=== PATIENT | female | born 1960 | race African-American/Black ===

== ENCOUNTER → 2017-05-13 | Outpatient (CLI) | payer MEDICARE, MEDICAID ==
--- NOTE | 2017-05-13 16:59 | WOMENS IMAGING REPORT ---
EXAM DESCRIPTION: 3D SCREENING MAMMO BILAT COMPLETED DATE/TIME: 05/13/2017 10:17 am REASON FOR STUDY: SCREENING MAMMO Z12.31 ENCNTR SCREEN MAMMOGRAM FOR MALIGNANT NEOPLASM OF RENU COMPARISON: Multiple since 2008 TECHNIQUE: Standard craniocaudal and mediolateral oblique views of each breast recorded using digita l acquisition and breast tomosynthesis. LIMITATIONS: None. FINDINGS: Findings present which are benign by mammographic criteria. No suspicious masses, calcifi cations or architectural distortion. Pertinent benign findings: Benign calcifications bilaterally. Bilateral breast masses, stable. Read with the assistance of CAD. .[facility] - R2 Cenova Version 1.3 .[facility] - R2 Cenova Version 1.3 .[facility] - R2 Cenova Version 2.4 .[facility] - R2 Cenova Version 2.4 .[facility] - R2 Media Assistant Version 9.2 Benign mammographic findings may include one or more of the following: Smooth masses, popcorn/rim/co arse calcifications, asymmetries, post-procedure changes, and lesions with long-standing stability. IMPRESSION: BENIGN MAMMOGRAPHIC FINDINGS. BIRADS 2 BREAST DENSITY: d. The breasts are extremely dense, which lowers the sensitivity of mammography. BIRAD: 2 BENIGN FINDING(S) RECOMMENDATION: RECOMMENDATION: ROUTINE SCREENING Please continue yearly bilateral screening tomosynthesis in April 2018 COMMENT: The patient has been notified of the results by letter per SA requirements. Additional no tification policies are in place for contacting patient with suspicious or incomplete findings. Quality ID #[id number]: The [employer] recommends an annual screening mammogram for women aged 40 years or over. This facility utilizes a reminder system to ensure that all patients receive reminder letters, and/or direct phone calls for appointments. This includes reminders for routine scr eening mammograms, diagnostic mammograms, or other Breast Imaging Interventions when appropriate. Th is patient will be placed in the appropriate reminder system. The [employer] [place] [employer] (ACR) has developed recommendations for screening MRI of the breast s in certain patient populations, to be used in conjunction with mammography. Breast MRI surveillanc e may be appropriate for women with more than 20% lifetime risk of developing breast cancer as deter mined by genetic testing, significant family history of the disease, or history of mantle radiation f or Hodgkins Disease. ACR Practice Guidelines 2008. DBT Technology DBT is a type of tomographic mammography. With conventional mammography, overlapping breast tissue ma y make lesions difficult to detect, even with good compression. DBT uses an x-ray tube that rotates a round the breast, taking images at different angles. These images are then combined to create thin sl ices of the breast that the radiologist can view as a 3D reconstruction. The Coll[employer] unit can perform full-field digital mammograms (2D imaging); or DBT (3D imaging); or both, in a combination mode that quickly performs both the mammogram and the tomosynthesis scan while the breast is still compressed. PQRS 6045F: Fluoroscopic imaging is not utilized for breast tomosynthesis. TECHNICAL DOCUMENTATION: FINDING NUMBER: (1) ASSESSMENT: (1) JOB ID: [id number] [employer]- All Rights Reserved
== END ==
LOC: WI 09:55
PROVIDERS: ATTEND Advanced Practice Midwife
DX: Z12.31 Encounter for screening mammogram for malignant neoplasm of breast (principal)
CPT/HCPCS: 77063; G0202; 77067

== ENCOUNTER → 2017-07-26 | Outpatient (CLI) | payer MEDICARE, MEDICAID ==
--- NOTE | 2017-07-26 15:23 | WOMENS IMAGING REPORT ---
EXAM DESCRIPTION: 3D SCREENING MAMMO BILAT COMPLETED DATE/TIME: 07/26/2017 9:33 am REASON FOR STUDY: ROUTINE SCREENING; Z12.31 Z12.31 ENCNTR SCREEN MAMMOGRAM FOR MALIGNANT NEOPLASM O F RENU COMPARISON: 05/13/2017 and 05/11/2016. TECHNIQUE: Standard craniocaudal and mediolateral oblique views of each breast recorded using digita l acquisition and breast tomosynthesis. LIMITATIONS: None. FINDINGS: Findings present which are benign by mammographic criteria. No suspicious masses, calcifi cations or architectural distortion. Pertinent benign findings: Stable calcifications. Read with the assistance of CAD. .[facility] - R2 Cenova Version 1.3 .[facility] Imaging - R2 Cenova Version 1.3 .[facility] - R2 Cenova Version 2.4 .[facility] [place] R2 Cenova Version 2.4 .[facility] - R2 Diesel Engine I Pipe Fitter Version 9.2 Benign mammographic findings may include one or more of the following: Smooth masses, popcorn/rim/co arse calcifications, asymmetries, post-procedure changes, and lesions with long-standing stability. IMPRESSION: BENIGN MAMMOGRAPHIC FINDINGS. BIRADS 2 BREAST DENSITY: d. The breasts are extremely dense, which lowers the sensitivity of mammography. BIRAD: 2 BENIGN FINDING(S) RECOMMENDATION: RECOMMENDATION: ROUTINE SCREENING COMMENT: The patient has been notified of the results by letter per SA requirements. Additional no tification policies are in place for contacting patient with suspicious or incomplete findings. Quality ID #[id number]: The [employer] recommends an annual screening mammogram for women aged 40 years or over. This facility utilizes a reminder system to ensure that all patients receive reminder letters, and/or direct phone calls for appointments. This includes reminders for routine scr eening mammograms, diagnostic mammograms, or other Breast Imaging Interventions when appropriate. Th is patient will be placed in the appropriate reminder system. The [employer] (ACR) has developed recommendations for screening MRI of the breast s in certain patient populations, to be used in conjunction with mammography. Breast MRI surveillanc e may be appropriate for women with more than 20% lifetime risk of developing breast cancer as deter mined by genetic testing, significant family history of the disease, or history of mantle radiation f or Hodgkins Disease. ACR Practice Guidelines 2008. DBT Technology DBT is a type of tomographic mammography. With conventional mammography, overlapping breast tissue ma y make lesions difficult to detect, even with good compression. DBT uses an x-ray tube that rotates a round the breast, taking images at different angles. These images are then combined to create thin sl ices of the breast that the radiologist can view as a 3D reconstruction. The [employer] unit can perform full-field digital mammograms (2D imaging); or DBT (3D imaging); or both, in a combination mode that quickly performs both the mammogram and the tomosynthesis scan while the breast is still compressed. PQRS 6045F: Fluoroscopic imaging is not utilized for breast tomosynthesis. TECHNICAL DOCUMENTATION: FINDING NUMBER: (1) ASSESSMENT: (1) JOB ID: [id number] [employer]- All Rights Reserved
== END ==
LOC: WI 09:14
PROVIDERS: ATTEND Internal Medicine Geriatric Medicine
DX: Z12.31 Encounter for screening mammogram for malignant neoplasm of breast (principal)
CPT/HCPCS: 77063; G0202; 77067

== ENCOUNTER → 2018-02-27 | Emergency (ER) | payer MEDICARE, MEDICAID ==
[~2018-02-27] MED LIST: ETOMIDATE INJ/PF 20 MG/10 ML SDV IV ONE; FENTANYL CITRATE INJ/PF 100 MCG/2 ML AMPUL IV PRN; NALOXONE HCL INJ/PF 0.4 MG/1 ML SDV IV ONE; NALOXONE HCL INJ/PF 0.4 MG/1 ML SDV ONE; NORMAL SALINE 1000 ML 1,000 ML IV ONE; PIPERACILLIN/TAZOBACTAM 3.375 GM VIAL IV ONE; PROPOFOL 1,000 MG/100 ML INFUS..BTL IV ONE; PROPOFOL 1,000 MG/100 ML INFUS..BTL IV PRN; SUCCINYLCHOLINE CHLORIDE INJ 200 MG/10 ML VIAL IV ONE; SUCCINYLCHOLINE CHLORIDE INJ 200 MG/10 ML VIAL ONE
--- NOTE | 2018-02-27 20:08 | ER Document Report ---
ED General - General Stated Complaint: UNRESPONSIVENESS Time Seen by Provider: 02/27/18 20:02 Cannot obtain history due to: Altered mental status Notes: Patient is a 57 year old female who has a known history of a brain malignancy who presents lethargic. EMS reports that the patient has been like this all day apparently and when she was feeling to improve they contacted EMS. The patient is normally up, walking around and interactive. She is not currently take any medications. No additional history can be obtained due to the patient' s mental status at time of arrival. TRAVEL OUTSIDE OF THE [place] IN LAST 30 DAYS: No - Related Data Allergies/Adverse Reactions: No Known Allergies Allergy (Unverified 03/24/16 12:01) Past Medical History - General Information source: Emergency Med Personnel Cannot obtain history due to: Altered mental status - Social History Smoking Status: Unknown if Ever Smoked Lives with: Family Family History: Reviewed & Not Pertinent Past Surgical History: Reports: Hx Neurologic Surgery - dr. abi singh. shunts - Immunizations Hx Diphtheria, Pertussis, Tetanus Vaccination: Yes Review of Systems - Review of Systems -: Yes ROS unobtainable due to patient's medical condition Physical Exam - Vital signs Vitals: Resp BP Pulse Ox 11 L 122/85 95 02/27/18 20:42 02/27/18 20:42 02/27/18 20:42 Notes: PHYSICAL EXAMINATION: GENERAL: Lethargic, responds only to noxious stimuli HEAD: Atraumatic, normocephalic. EYES: Pupils equal round and reactive to light, sclera anicteric, conjunctiva are normal. ENT: nares patent, oropharynx clear without exudates. Dry mucous membranes. NECK: supple without lymphadenopathy LUNGS: Breath sounds clear to auscultation bilaterally and equal. No wheezes rales or rhonchi. HEART: Regular rate and rhythm without murmurs ABDOMEN: Soft, normoactive bowel sounds. No guarding, no rebound. No masses appreciated. EXTREMITIES: no pitting or edema. No cyanosis. NEUROLOGICAL: GCS 7. No spontaneous eye opening. Does not open eyes to noxious stimuli, withdraws purposefully on the left and crosses midline from left to right with noxious stimuli applied to the left upper extremity. Withdraws to pain in the left lower extremity. Slight withdrawal to pain in the right lower extremity to noxious stimuli PSYCH: Lethargic, does not speak SKIN: Warm, Dry, normal turgor, no rashes or lesions noted. Course - Re-evaluation Re-evalutation: 02/27/18 20:03 Patient presents lethargic, GCS 7 at time of presentation. Patient purposely moves her left upper extremity to pain as well as her left lower extremity pain but does not move her right upper extremity to noxious stimuli. She does purposefully cross midline in try to move my hand using her left hand. She does not have spontaneous eye opening. Pupils are 2 mm, equally reactive. She is currently protecting her airway. She has a history of a brain tumor but no additional history is provided and patient is unable to provide any additional history. Patient is in critical condition and will require frequent reassessments. Concern for possible hemorrhagic conversion of her brain tumor versus associated vasogenic edema. Stat CT the head has been ordered. 02/27/18 20:20 CT the head shows shunt in place, no obvious intracranial bleed. Awaiting formal radiology read. EKG unremarkable. Patient continues to be quite lethargic. She does continue to protect her airway at this point and I will withhold intubation at this time. Will provide an empiric dose of 0.4 mg of naloxone and see if there is any response. 02/27/18 20:34 Radiology has formally read the CT and does not note any evidence of acute intracranial bleed. Accu-Chek shows BGL within normal limits. Labs pending. Patient continues to purposely move her left upper and left lower extremities. She is sleeping soundly but does not appear to be having an acute airway compromise. Will continue to monitor for need for airway intervention. 02/27/18 21:34 Chest x-ray shows a possible left lower lobe pneumonia. Labs otherwise completely unremarkable. Will contact [facility] for consideration of transfer. The patient continues to protect her airway, no gurgling, swallowing oral secretions without any difficulty. The patient was completely covered in stool , took approximately 20 minutes for 2 staff members to clean her and place a Fall catheter. An Adult Protective Services report has been made. 02/27/18 21:46 I have contacted [facility] and awaiting a call back. Shunt series is pending. 02/27/18 22:31 Patient has been accepted by Dr. Duran at [facility] to the emergency department. The patient apparently per the nurse had a brief period of lucidity where she responded to several questions but is no longer doing so. She continues to protect her airway. Awaiting transfer. 02/28/18 00:21 Patient has been intubated for airway protection as she will be going by a flight transfer and do has requested airway protection prior to transfer. This was completed without any difficulty. Fentanyl boluses as needed 02/28/18 01:03 Transport has arrived for patient transfer. She is appropriate and stable for transport. Propofol infusion has been started as patient was biting the ET tube despite fentanyl sedation. 02/28/18 01:28 Chest x-ray does show that the tube is in the right mainstem which is surprising given that it is still 22 cm at the lip. Will pull the tube back to 20 cm at the lip. - Vital Signs Vital signs: Temp Pulse Resp BP Pulse Ox 16 145/89 H 96 02/28/18 01:11 02/28/18 01:11 02/28/18 01:11 - Laboratory Result Diagrams: 02/27/18 20:25 02/27/18 20:25 Laboratory results interpreted by me: 02/27/18 02/27/18 02/27/18 20:25 20:25 21:31 WBC 11.5 H Hgb 16.6 H Hct 49.1 H RDW 15.3 H Seg Neutrophils % 88.6 H Lymphocytes % 5.2 L Absolute Neutrophils 10.2 H Potassium 3.5 L Glucose 112 H Direct Bilirubin 0.6 H Total Protein 9.1 H Urine Protein 30 H Urine Ketones 80 H Urine Blood LARGE H Urine Nitrite POSITIVE H Urine Urobilinogen 4.0 H - Diagnostic Test Radiology reviewed: Image reviewed, Reports reviewed Radiology results interpreted by me: 02/27/18 21:37 CT head: No acute intercranial bleed Chest x-ray: Small left lower lobe infiltrate Procedures - Intubation Orotracheal Airway evaluation: Normal anatomy, Loose teeth Mallampati Classification: Class 2 Medications: Etomidate, Succinylcholine Intubation method: Orotracheal Blade type: Katrin Blade size: 4 Equipment used: Glidescope ETT size: 7.5 ETT secured at: Lips ETT secured at (cm): 22 Breath Sounds after Intubation: Equal End tidal CO2 confirmed: Yes Ventilator settings: SIMV Tidal volume: 360 FiO2: 50 Respirations: 16 PEEP: 5 Post Intubation Xray: Yes - Initial x-ray showed right mainstem intubation Intubation Complications: No complications Critical Care Note - Critical Care Note Total time excluding time spent on procedures (mins): 56 Comments: Critical care time spent obtaining history from patient or surrogate, discussions with consultants, development of treatment plan with patient or surrogate, evaluation of patient's response to treatment, examination of patient , ordering and performing treatments and interventions, ordering and review of laboratory studies, re-evaluation of patient's condition, ordering and review of radiographic studies and review of old charts Discharge - Discharge Clinical Impression: S/P MACHINE TRIMMER shunt Altered mental status Qualifiers: Altered mental status type: coma Coma depth: Dhiraj coma 3-8 Coma timing: in the field (EMT or ambulance) Qualified Code(s): R40.2431 - Addison coma scale score 3-8, in the field [EMT or ambulance] Left lower lobe pneumonia Qualifiers: Pneumonia type: due to unspecified organism Qualified Code(s): J18.1 - Lobar pneumonia, unspecified organism Condition: Critical Disposition: [facility] Referrals: SMITHA MICHELLE MD [Primary Care Provider] - Follow up as needed
--- NOTE | 2018-02-27 20:28 | RADIOLOGY REPORT (SQ) ---
EXAM DESCRIPTION: CT HEAD WITHOUT COMPLETED DATE/TIME: 02/27/2018 8:14 pm REASON FOR STUDY: ams, hx brain tumor COMPARISON: None. TECHNIQUE: Axial images acquired through the brain without intravenous contrast. Images reviewed wi th bone, brain and subdural windows. Images stored on PACS. All CT scanners at this facility use dose modulation, iterative reconstruction, and/or weight based d osing when appropriate to reduce radiation dose to as low as reasonably achievable (ALARA). [facility]: Dose Right [facility]: CareDose [facility]: Dose Right [facility]: Teradose 4D [facility]: Smart HEXIO RADIATION DOSE: CT Rad equipment meets quality standard of care and radiation dose reduction techniq ues were employed. CTDIvol: 53.2 mGy. DLP: 991 mGy-cm. mGy. LIMITATIONS: None. FINDINGS: VENTRICLES: Prominent. CEREBRUM: No masses. No hemorrhage. No midline shift. Areas of low density in the white matter mos t likely due to chronic micro-vascular ischemic and procedural change. No evidence for acute infarct ion. CEREBELLUM: 2.2 cm calcified lesion in the tectal -4th ventricular region. No hemorrhage. No evide nce for acute infarction. EXTRAAXIAL SPACES: Mild age-related involutional change. No fluid collections. No masses. ORBITS AND GLOBE: No intra- or extraconal masses. Normal contour of globe without masses. CALVARIUM: Procedural changes in the right occipital bone. PARANASAL SINUSES: No fluid or mucosal thickening. SOFT TISSUES: No mass or hematoma. OTHER: Ventriculostomy catheter enters in the right frontal position with tip overlying the 3rd ventr icle. IMPRESSION: 2.2 cm calcified lesion in the tectal -4th ventricular region. No hemorrhage. Ventriculostomy catheter enters in the right frontal position with tip overlying the 3rd ventricle. EVIDENCE OF ACUTE STROKE: NO. TECHNICAL DOCUMENTATION: JOB ID: [id number] Quality ID # [id number]: Final reports with documentation of one or more dose reduction techniques (e.g., Au tomated exposure control, adjustment of the mA and/or kV according to patient size, use of iterative reconstruction technique) 2010 [employer]- All Rights Reserved Reading location - IP/workstation name: [email or web address]
[2018-02-27 20:47] LABS: VENOUS BLOOD HCO3 26.8 mmol/L (20-32); VENOUS BLOOD PCO2 42.4 mmHg (35-63); VENOUS BLOOD PH 7.42 (7.30-7.42)
[2018-02-27 20:50] LABS: ABSOLUTE BASOPHILS # (AUTO) 0.1 10^3/uL (0.0-0.2); ABSOLUTE LYMPHOCYTES (AUTO) 0.6 10^3/uL (0.5-4.7); ABSOLUTE MONOCYTES (AUTO) 0.6 10^3/uL (0.1-1.4); ABSOLUTE NEUT (AUTO) 10.2 10^3/uL (1.7-8.2); BASOPHILS % (AUTO) 0.5 % (0-2); EOSINOPHILS % (AUTO) 0.3 % (0-6); HEMATOCRIT 49.1 % (36.0-47.0); HEMOGLOBIN 16.6 g/dL (12.0-15.5); LYMPHOCYTES % (AUTO) 5.2 % (13-45); MEAN CORPUSCULAR HEMOGLOBIN 31.5 pg (27.0-33.4); MEAN CORPUSCULAR HGB CONC 33.7 g/dL (32.0-36.0); MEAN CORPUSCULAR VOLUME 93 fl (80-97); MONOCYTES % (AUTO) 5.4 % (3-13); PLATELET COUNT 256 10^3/uL (150-450); RED BLOOD COUNT 5.27 10^6/uL (3.72-5.28); RED CELL DISTRIBUTION WIDTH 15.3 % (11.5-14.0); SEGMENTED NEUTROPHILS % (AUTO) 88.6 % (42-78); TOTAL CELLS COUNTED % (AUTO) 100 %; WHITE BLOOD COUNT 11.5 10^3/uL (4.0-10.5)
--- NOTE | 2018-02-27 21:09 | RADIOLOGY REPORT (SQ) ---
EXAM DESCRIPTION: CHEST SINGLE VIEW COMPLETED DATE/TIME: 02/27/2018 8:55 pm REASON FOR STUDY: ams COMPARISON: None. EXAM PARAMETERS: NUMBER OF VIEWS: One view. TECHNIQUE: Single frontal radiographic view of the chest acquired. RADIATION DOSE: NA LIMITATIONS: None. FINDINGS: LUNGS AND PLEURA: Ill-defined opacification in the left lower lung. MEDIASTINUM AND HILAR STRUCTURES: No masses. Contour normal. HEART AND VASCULAR STRUCTURES: Heart normal in size. Normal vasculature. BONES: No acute findings. HARDWARE: Ventriculoperitoneal shunt. OTHER: No other significant finding. IMPRESSION: Cannot exclude a limited left lower lobe pneumonia. TECHNICAL DOCUMENTATION: JOB ID: [id number] [employer]- All Rights Reserved Reading location - IP/workstation name: [email or web address]
[2018-02-27 21:28] LABS: ALANINE AMINOTRANSFERASE 9 U/L (9-52); ALBUMIN 4.4 g/dL (3.5-5.0); ALKALINE PHOSPHATASE 72 U/L (38-126); ANION GAP 15 (5-19); ASPARTATE AMINO TRANSFERASE 28 U/L (14-36); BILIRUBIN,DIRECT 0.6 mg/dL (0.0-0.4); BILIRUBIN,TOTAL 1.1 mg/dL (0.2-1.3); BLOOD UREA NITROGEN 10 mg/dL (7-20); CALCIUM 9.7 mg/dL (8.4-10.2); CARBON DIOXIDE 26 mmol/L (22-30); CHLORIDE 103 mmol/L (98-107); GLUCOSE 112 mg/dL (75-110); POTASSIUM 3.5 mmol/L (3.6-5.0); SODIUM 144.3 mmol/L (137-145); TOTAL PROTEIN 9.1 g/dL (6.3-8.2)
--- NOTE | 2018-02-27 22:42 | EKG REPORT ---
SEVERITY:- ABNORMAL ECG - SINUS TACHYCARDIA RIGHT ATRIAL ABNORMALITY LEFT ANTERIOR FASCICULAR BLOCK : Confirmed by: Bethany Burns MD 27-Feb-2018 22:42:09
[2018-02-27 23:07] LABS: APPEARANCE,URINE TURBID; BILIRUBIN,URINE NEGATIVE (NEGATIVE); GLUCOSE, URINE NEGATIVE (NEGATIVE); KETONES,URINE 80 mg/dL (NEGATIVE); LEUKOCYTE ESTERASE,URINE NEGATIVE (NEGATIVE); NITRITE,URINE POSITIVE (NEGATIVE); PROTEIN,URINE 30 mg/dL (NEGATIVE)
--- NOTE | 2018-02-27 23:13 | RADIOLOGY REPORT (SQ) ---
EXAM DESCRIPTION: Shuntogram, three views February 27, 2018 at 10:34 PM CLINICAL HISTORY: eval shunt failure COMPARISON: None. FINDINGS: Frontal views of the skull, chest and abdomen were submitted. No discrete gap is noted within the catheter. The catheter ends at the level of the right lower quadrant. Lucency between the intracranial catheter and extracranial catheter compatible with the valve location. EKG leads project over the chest. Recommend further imaging as indicated. IMPRESSION: Frontal views of the skull, chest and abdomen were submitted. No discrete gap is noted within the catheter. The catheter ends at the level of the right lower quadrant. Lucency between the intracranial catheter and extracranial catheter compatible with the valve location. EKG leads project over the chest. Recommend further imaging as indicated.
[2018-02-27 23:16] LABS: COLOR,URINE DARK YELLOW
--- NOTE | 2018-02-28 00:54 | RADIOLOGY REPORT (SQ) ---
EXAM DESCRIPTION: XR CHEST 1 VIEW COMPLETED DATE/TME: 02/28/2018 00:00 CLINICAL HISTORY: 57 years, Female, TUBE PLACEMENT COMPARISON: None. FINDINGS: Single view of the chest. Endotracheal tube with tip in the right mainstem bronchus. NG tube with tip and side-port in the stomach. Leads overlie the chest. Interval development of opacification of the left lung which is likely due to collapse secondary to right mainstem bronchus intubation. No pneumothorax. Visualization of right ventriculoperitoneal shunt. IMPRESSION: 1. Endotracheal tube with tip in the proximal right mainstem bronchus. Repositioning recommended by retracting 4-5 cm. 2. Opacification and volume loss in the left lung likely related to right mainstem bronchial intubation. 2011 [employer]- All Rights Reserved
--- NOTE | 2018-02-28 01:46 | RADIOLOGY REPORT (SQ) ---
EXAM DESCRIPTION: XR CHEST 1 VIEW COMPLETED DATE/TME: 02/28/2018 00:00 CLINICAL HISTORY: 57 years, Female, TUBE PLACEMENT COMPARISON: 02/28/2018 FINDINGS: Single view of the chest. Interval repositioning of endotracheal tube with tip 3 cm above the kiki. NG tube with tip and side-port below the diaphragm. Cardiomediastinal silhouette has normal size and contour. Significant improved aeration of the left lung with minimal residual left basilar subsegmental atelectasis. Right lung is clear. Ventriculoperitoneal shunt. No pneumothorax. Leads overlie the chest. No acute osseous abnormalities. IMPRESSION: 1. Endotracheal tube is now in appropriate radiographic position. 2. Significantly improved aeration of the left lung with mild residual left basilar subsegmental atelectasis. 2011 [employer]- All Rights Reserved
[2018-02-28 03:14] VITALS: BP 145/89
== END | disposition short-term general hospital (02) ==
LOC: ER 19:54
PROC: 0BH17EZ Insertion of Endotracheal Airway into Trachea, Via Natural or Artificial Opening (ICD-10-PCS; principal; 2018-02-27)
DX: J18.1 Lobar pneumonia, unspecified organism (principal); R53.83 Other fatigue; R40.2431 Glasgow coma scale score 3-8, in the field [EMT or ambulance]; Z98.2 Presence of cerebrospinal fluid drainage device
CPT/HCPCS: 93005; 96376; 99291; 96361; 96375; 96365; 36415; 87040; 87086; 82962; 85025; 87088; 80053; 81001; 84484; 87186; 82803; 83605; 75809; 71045; 70450; 93010; 31500; J2310; J0330; J7030; J2543; 94660; J3010

== ENCOUNTER 2018-03-15 11:52 | Emergency (ER) | payer MEDICARE, MEDICAID ==
[2018-03-15 12:07] VITALS: BP 140/64
--- NOTE | 2018-03-15 12:14 | ER Document Report ---
ED Suture/Wound Recheck - General Chief Complaint: Suture Removal Stated Complaint: SUTURE REMOVAL Time Seen by Provider: 03/15/18 12:07 TRAVEL OUTSIDE OF THE [place] IN LAST 30 DAYS: No - HPI Previous ED treatment: Laceration repair Quality of pain: No pain Context: Other - Surgery. Recalibration of her shunt Symptoms since procedure: No complaints Exacerbated by: Denies Relieved by: Denies - Related Data Allergies/Adverse Reactions: No Known Allergies Allergy (Unverified 03/24/16 12:01) Past Medical History - General Information source: Patient - Social History Smoking Status: Unknown if Ever Smoked Chew tobacco use (# tins/day): No Frequency of alcohol use: None Drug Abuse: None Lives with: Family Family History: Reviewed & Not Pertinent Patient has suicidal ideation: No Patient has homicidal ideation: No Renal/ Medical History: Denies: Hx Peritoneal Dialysis Past Surgical History: Reports: Hx Neurologic Surgery - dr. abi singh. shunts AND TUMOR REMOVAL - Immunizations Hx Diphtheria, Pertussis, Tetanus Vaccination: Yes Review of Systems - Review of Systems Constitutional: No symptoms reported EENT: No symptoms reported Cardiovascular: No symptoms reported Respiratory: No symptoms reported Gastrointestinal: No symptoms reported Genitourinary: No symptoms reported Female Genitourinary: No symptoms reported Musculoskeletal: No symptoms reported Skin: No symptoms reported Hematologic/Lymphatic: No symptoms reported Neurological/Psychological: No symptoms reported Physical Exam - Vital signs Vitals: Temp Pulse Resp BP Pulse Ox 97.8 F 97 16 140/64 H 99 03/15/18 12:05 03/15/18 12:05 03/15/18 12:05 03/15/18 12:05 03/15/18 12:05 Interpretation: Normal - General General appearance: Appears well, Alert - HEENT Head: Normocephalic, Atraumatic Eyes: Normal Pupils: PERRL - Respiratory Respiratory status: No respiratory distress Chest status: Nontender Breath sounds: Normal Chest palpation: Normal - Cardiovascular Rhythm: Regular Heart sounds: Normal auscultation Murmur: No - Abdominal Inspection: Normal Distension: No distension Bowel sounds: Normal Tenderness: Nontender Organomegaly: No organomegaly - Back Back: Normal, Nontender - Extremities General upper extremity: Normal inspection, Nontender, Normal color, Normal ROM , Normal temperature General lower extremity: Normal inspection, Nontender, Normal color, Normal ROM , Normal temperature, Normal weight bearing. No: Jacob's sign - Neurological Neuro grossly intact: Yes Cognition: Normal Orientation: AAOx4 Dhiraj Coma Scale Eye Opening: Spontaneous Dhiraj Coma Scale Verbal: Oriented Stephenson Coma Scale Motor: Obeys Commands Stephenson Coma Scale Total: 15 Speech: Normal Motor strength normal: LUE, RUE, LLE, RLE Sensory: Normal - Psychological Associated symptoms: Normal affect, Normal mood - Skin Skin Temperature: Warm Skin Moisture: Dry Skin Color: Normal Skin irregularity: other - Incision right parietal scalp. #20 interrupted sutures intact. Edges well approximated. No signs of infection Course - Vital Signs Vital signs: Temp Pulse Resp BP Pulse Ox 97.8 F 97 16 140/64 H 99 03/15/18 12:05 03/15/18 12:05 03/15/18 12:05 03/15/18 12:05 03/15/18 12:05 Discharge - Discharge Clinical Impression: Visit for suture removal Condition: Stable Disposition: HOME, SELF-CARE Instructions: Suture Removal Additional Instructions: Keep incision clean and dry Protect from sunlight Follow-up with primary care Referrals: SMITHA MICHELLE MD [Primary Care Provider] - Follow up as needed
== END 2018-03-15 12:21 | disposition home or self-care (01) ==
LOC: ER 11:52
DX: Z48.02 Encounter for removal of sutures (principal); Z98.2 Presence of cerebrospinal fluid drainage device

== ENCOUNTER → 2018-07-27 | Outpatient (CLI) | payer MEDICAID, MEDICARE ==
--- NOTE | 2018-07-27 14:18 | WOMENS IMAGING REPORT ---
EXAM DESCRIPTION: 3D SCREENING MAMMO BILAT COMPLETED DATE/TIME: 07/27/2018 1:56 pm REASON FOR STUDY: BILATERAL SCREENING MAMMO 3D/Z12.31 Z12.31 ENCNTR SCREEN MAMMOGRAM FOR MALIGNANT NEOPLASM OF RENU COMPARISON: [id number] TECHNIQUE: Standard craniocaudal and mediolateral oblique views of each breast recorded using digita l acquisition and breast tomosynthesis. LIMITATIONS: None. FINDINGS: RIGHT BREAST MASSES: No suspicious masses. CALCIFICATIONS: Upper outer quadrant 2.5 cm deep to the nipple. ARCHITECTURAL DISTORTION: None. DEVELOPING DENSITY: None. ASYMMETRY: None noted. OTHER: No other significant findings. LEFT BREAST MASSES: No suspicious masses. CALCIFICATIONS: No new or suspicious calcifications. ARCHITECTURAL DISTORTION: None. DEVELOPING DENSITY: None. ASYMMETRY: None noted. OTHER: No other significant findings. Read with the assistance of CAD. .[facility] - R2 Cenova Version 1.3 .[facility] Imaging - R2 Cenova Version 1.3 .[facility] - R2 Cenova Version 2.4 .[facility] [place] - R2 Cenova Version 2.4 .[facility] - R2 Veneer Joiner Version 9.2 IMPRESSION: Clustered calcifications right breast. BREAST DENSITY: d. The breasts are extremely dense, which lowers the sensitivity of mammography. BIRAD: 0 Incomplete: Needs Additional Imaging Evaluation and/or prior Mammograms for Comparison. RECOMMENDATION: RECOMMENDED FOLLOW-UP: True lateral and magnification views right breast. The patient will be contacted for additional imaging. COMMENT: The patient has been notified of the results by letter per SA requirements. Additional no tification policies are in place for contacting patient with suspicious or incomplete findings. Quality ID #225: The [employer] recommends an annual screening mammogram for women aged 40 years or over. This facility utilizes a reminder system to ensure that all patients receive reminder letters, and/or direct phone calls for appointments. This includes reminders for routine scr eening mammograms, diagnostic mammograms, or other Breast Imaging Interventions when appropriate. Th is patient will be placed in the appropriate reminder system. The [employer] (ACR) has developed recommendations for screening MRI of the breast s in certain patient populations, to be used in conjunction with mammography. Breast MRI surveillanc e may be appropriate for women with more than 20% lifetime risk of developing breast cancer as deter mined by genetic testing, significant family history of the disease, or history of mantle radiation f or Hodgkins Disease. ACR Practice Guidelines 2008. DBT Technology DBT is a type of tomographic mammography. With conventional mammography, overlapping breast tissue ma y make lesions difficult to detect, even with good compression. DBT uses an x-ray tube that rotates a round the breast, taking images at different angles. These images are then combined to create thin sl ices of the breast that the radiologist can view as a 3D reconstruction. The BATTERIES [employer] BANDS unit can perform full-field digital mammograms (2D imaging); or DBT (3D imaging); or both, in a combination mode that quickly performs both the mammogram and the tomosynthesis scan while the breast is still compressed. PQRS 6045F: Fluoroscopic imaging is not utilized for breast tomosynthesis. TECHNICAL DOCUMENTATION: FINDING NUMBER: (1) ASSESSMENT: (1) JOB ID: [id number] [employer]- All Rights Reserved Reading location - IP/workstation name: [email or web address]
== END ==
LOC: WI 12:49
PROVIDERS: ATTEND Internal Medicine Geriatric Medicine
DX: Z12.31 Encounter for screening mammogram for malignant neoplasm of breast (principal); R92.0 Mammographic microcalcification found on diagnostic imaging of breast
CPT/HCPCS: 77063; 77067

== ENCOUNTER → 2018-08-08 | Outpatient (CLI) | payer MEDICARE, MEDICAID ==
--- NOTE | 2018-08-08 17:27 | WOMENS IMAGING REPORT ---
EXAM DESCRIPTION: RIGHT DIAGNOSTIC MAMMO W/CAD COMPLETED DATE/TIME: 08/08/2018 11:04 am REASON FOR STUDY: RT BREAST CALCIFICATIONS R92.0 MAMMOGRAPHIC MICROCALCIFICATION FOUND ON DX IMAGIN G OF COMPARISON: Multiple since 2008 TECHNIQUE: Cone compression craniocaudal and 90 mediolateral oblique images of the breast recorded with digital acquisition. Additional right whole breast 90 mediolateral view LIMITATIONS: None. FINDINGS: BREAST: Right MASSES: No suspicious masses. CALCIFICATIONS: Coarse dense benign appearing calcifications are present in the right breast upper ou ter quadrant, 3 cm from the nipple. ARCHITECTURAL DISTORTION: None. DEVELOPING DENSITY: None. ASYMMETRY: None noted. OTHER: No other significant findings. Read with the assistance of CAD. 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 BREAST DENSITY: d. The breasts are extremely dense, which lowers the sensitivity of mammography. BIRAD: 2 Benign findings. RECOMMENDATION: RECOMMENDED FOLLOW UP: Please continue yearly bilateral screening tomosynthesis in D 2018, given extremely dense fibroglandular tissue bilaterally. SPECIFIC INTERVENTION/IMAGING/CONSULTATION RECOMMENDED:No additional intervention/ imaging/consultati on needed at this time. COMMUNICATION:The negative/benign results were communicated to the patient. COMMENT: The patient has been notified of the results by letter per SA requirements. Additional no tification policies are in place for contacting patient with suspicious or incomplete findings. Quality ID #225: The [employer] recommends an annual screening mammogram for women aged 40 years or over. This facility utilizes a reminder system to ensure that all patients receive reminder letters, and/or direct phone calls for appointments. This includes reminders for routine scr eening mammograms, diagnostic mammograms, or other Breast Imaging Interventions when appropriate. Th is patient will be placed in the appropriate reminder system. The [employer] (ACR) has developed recommendations for screening MRI of the breast s in certain patient populations, to be used in conjunction with mammography. Breast MRI surveillanc e may be appropriate for women with more than 20% lifetime risk of developing breast cancer as deter mined by genetic testing, significant family history of the disease, or history of mantle radiation f or Hodgkins Disease. ACR Practice Guidelines 2008. TECHNICAL DOCUMENTATION: FINDING NUMBER: (1) ASSESSMENT: (1) JOB ID: [id number] [employer]- All Rights Reserved Reading location - IP/workstation name: [email or web address]-RR2
== END ==
LOC: WI 10:15
PROVIDERS: ATTEND Internal Medicine Geriatric Medicine
DX: R92.0 Mammographic microcalcification found on diagnostic imaging of breast (principal)

== ENCOUNTER 2019-04-23 19:04 | Emergency (ER) | payer MEDICARE, MEDICAID ==
[2019-04-23] MEDS ORDERED: ADENOSINE INJ/PF 6 MG/2 ML SDV IV ONE (19:14)
[2019-04-23 19:27] LABS: ABSOLUTE BASOPHILS # (AUTO) 0.1 10^3/uL (0.0-0.2); ABSOLUTE EOSINOPHILS # (AUTO) 0.1 10^3/uL (0.0-0.6); ABSOLUTE LYMPHOCYTES (AUTO) 1.1 10^3/uL (0.5-4.7); ABSOLUTE MONOCYTES (AUTO) 0.9 10^3/uL (0.1-1.4); ABSOLUTE NEUT (AUTO) 8.7 10^3/uL (1.7-8.2); BASOPHILS % (AUTO) 0.5 % (0-2); EOSINOPHILS % (AUTO) 0.8 % (0-6); HEMATOCRIT 46.5 % (36.0-47.0); HEMOGLOBIN 15.6 g/dL (12.0-15.5); LYMPHOCYTES % (AUTO) 10.1 % (13-45); MEAN CORPUSCULAR HEMOGLOBIN 30.7 pg (27.0-33.4); MEAN CORPUSCULAR HGB CONC 33.5 g/dL (32.0-36.0); MEAN CORPUSCULAR VOLUME 92 fl (80-97); MONOCYTES % (AUTO) 8.2 % (3-13); PLATELET COUNT 284 10^3/uL (150-450); RED BLOOD COUNT 5.07 10^6/uL (3.72-5.28); RED CELL DISTRIBUTION WIDTH 13.7 % (11.5-14.0); SEGMENTED NEUTROPHILS % (AUTO) 80.4 % (42-78); TOTAL CELLS COUNTED % (AUTO) 100 %; WHITE BLOOD COUNT 10.8 10^3/uL (4.0-10.5)
[2019-04-23 19:30] LABS: INTERNATIONAL RATION (INR) 1.86; PROTHROMBIN TIME 21.7 SEC (11.4-15.4)
[2019-04-23 19:36] LABS: ALBUMIN 4.1 g/dL (3.5-5.0); ALKALINE PHOSPHATASE 57 U/L (38-126); ANION GAP 13 (5-19); ASPARTATE AMINO TRANSFERASE 18 U/L (14-36); BILIRUBIN,DIRECT 0.5 mg/dL (0.0-0.4); BILIRUBIN,TOTAL 1.1 mg/dL (0.2-1.3); BLOOD UREA NITROGEN 11 mg/dL (7-20); CARBON DIOXIDE 20 mmol/L (22-30); CHLORIDE 108 mmol/L (98-107); GLUCOSE 104 mg/dL (75-110); POTASSIUM 3.2 mmol/L (3.6-5.0); TOTAL PROTEIN 7.6 g/dL (6.3-8.2)
[2019-04-23 19:39] LABS: ALCOHOL < 10 mg/dL (NONE DETECTED)
--- NOTE | 2019-04-23 19:59 | RADIOLOGY REPORT (SQ) ---
EXAM DESCRIPTION: CHEST SINGLE VIEW COMPLETED DATE/TIME: 04/23/2019 7:47 pm REASON FOR STUDY: cough/ams COMPARISON: None. EXAM PARAMETERS: NUMBER OF VIEWS: One view. TECHNIQUE: Single frontal radiographic view of the chest acquired. RADIATION DOSE: NA LIMITATIONS: None. FINDINGS: LUNGS AND PLEURA: No opacities, masses or pneumothorax. No pleural effusion. MEDIASTINUM AND HILAR STRUCTURES: No masses. Contour normal. HEART AND VASCULAR STRUCTURES: Heart normal in size. Normal vasculature. BONES: No acute findings. HARDWARE: SPRING INTERN shunt crosses the chest. OTHER: No other significant finding. IMPRESSION: NO ACUTE RADIOGRAPHIC FINDING IN THE CHEST. TECHNICAL DOCUMENTATION: JOB ID: [id number] [employer]- All Rights Reserved Reading location - IP/workstation name: [email or web address]
--- NOTE | 2019-04-23 19:59 | RADIOLOGY REPORT (SQ) ---
EXAM DESCRIPTION: CT HEAD WITHOUT COMPLETED DATE/TIME: 04/23/2019 7:47 pm REASON FOR STUDY: ams COMPARISON: 02/27/2018 TECHNIQUE: Axial images acquired through the brain without intravenous contrast. Images reviewed wi th bone, brain and subdural windows. Additional sagittal and coronal reconstructions were generated. Images stored on PACS. All CT scanners at this facility use dose modulation, iterative reconstruction, and/or weight based d osing when appropriate to reduce radiation dose to as low as reasonably achievable (ALARA). [facility]: Dose Right [facility]: CareDose [facility]: Dose Right [facility]: Teradose 4D [facility]: Smart Technologies RADIATION DOSE: CT Rad equipment meets quality standard of care and radiation dose reduction techniq ues were employed. CTDIvol: 53.2 mGy. DLP: 1017 mGy-cm. mGy. LIMITATIONS: None. FINDINGS: VENTRICLES: Lateral ventricles are prominent. A ventriculoperitoneal shunt is present. CEREBRUM: There is calcified mass in the region the tectum, unchanged. There is no midline shift. Ar eas of low density in the white matter most likely chronic small vessel ischemic changes. CEREBELLUM: No masses. No hemorrhage. No alteration of density. No evidence for acute infarction. EXTRAAXIAL SPACES: No fluid collections. No masses. ORBITS AND GLOBE: No intra- or extraconal masses. Normal contour of globe without masses. CALVARIUM: Craniotomy changes. Ventriculoperitoneal shunt. PARANASAL SINUSES: No fluid or mucosal thickening. SOFT TISSUES: No mass or hematoma. OTHER: No other significant finding. IMPRESSION: No acute finding. There is mild hydronephrosis. A ventriculoperitoneal shunt is presen t. There appears to be some degree chronic microvascular ischemia. EVIDENCE OF ACUTE STROKE: NO. COMMENT: Quality ID # [id number]: Final reports with documentation of one or more dose reduction techniques (e.g., Automated exposure control, adjustment of the mA and/or kV according to patient size, use of iterative reconstruction technique) TECHNICAL DOCUMENTATION: JOB ID: [id number] [employer]- All Rights Reserved Reading location - IP/workstation name: [email or web address]
[2019-04-23 20:29] LABS: APPEARANCE,URINE SLIGHTLY-CLOUDY; BILIRUBIN,URINE NEGATIVE (NEGATIVE); COLOR,URINE YELLOW; GLUCOSE, URINE NEGATIVE (NEGATIVE); KETONES,URINE 80 mg/dL (NEGATIVE); LEUKOCYTE ESTERASE,URINE NEGATIVE (NEGATIVE); NITRITE,URINE NEGATIVE (NEGATIVE); PROTEIN,URINE NEGATIVE (NEGATIVE); URINE SPECIFIC GRAVITY 1.018
[2019-04-23 20:33] LABS: VENOUS BLOOD BASE EXCESS -1.5 mmol/L; VENOUS BLOOD HCO3 25.3 mmol/L (20-32); VENOUS BLOOD PH 7.32 (7.30-7.42)
[2019-04-23] MEDS ORDERED: NORMAL SALINE 1000 ML 1,000 ML IV ONE (20:48)
[2019-04-23] MEDS ORDERED: CEFTRIAXONE 1 GM/D5W RTU 1 GM/50 ML RTUPB IV ONE (20:48)
[2019-04-23 20:55] LABS: URINE AMPHETAMINES SCREEN NEGATIVE; URINE BARBITURATES SCREEN NEGATIVE; URINE BENZODIAZEPINES SCREEN NEGATIVE; URINE COCAINE SCREEN NEGATIVE; URINE MARIJUANA (THC) SCREEN NEGATIVE; URINE METHADONE SCREEN NEGATIVE; URINE PHENCYCLIDINE SCREEN NEGATIVE
--- NOTE | 2019-04-23 21:30 | ER Document Report ---
ED General - General Chief Complaint: Altered Mental Status Stated Complaint: ALTERED MENTAL STATUS Time Seen by Provider: 04/23/19 19:15 Primary Care Provider: SMITHA MICHELLE MD [Primary Care Provider] - Follow up as needed Mode of Arrival: Medic Information source: Patient, Emergency Med Personnel TRAVEL OUTSIDE OF THE [place] IN LAST 30 DAYS: No - HPI Notes: Patient is brought from home by paramedics. They state that they were called out by family due to altered mental status. Medics say family told him the patient has fallen twice today and has been sleeping most the day. Medics said that family was not good historians. Medics state that it is unknown what type of fall the patient had or what may have been injured. The patient gives 1 word answers only and is also not a good historian. There is been no known vomiting. Paramedics state there is no obvious injuries. No reports of fevers. Patient does have history of a ventricular shunt. Symptoms have been severe. They are constant. It is unknown if anything makes them better or worse. Patient cannot characterize the symptoms. unknown if any radiation of symptoms. - Related Data Allergies/Adverse Reactions: No Known Allergies Allergy (Unverified 03/24/16 12:01) Past Medical History - General Information source: [facility] Records - Social History Smoking Status: Former Smoker Frequency of alcohol use: None Drug Abuse: None Family History: Reviewed & Not Pertinent Patient has suicidal ideation: No Patient has homicidal ideation: No - Medical History Notes: brain tumor with shunt Renal/ Medical History: Denies: Hx Peritoneal Dialysis Past Surgical History: Reports: Hx Neurologic Surgery - dr. abi singh. shunts AND TUMOR REMOVAL - Immunizations Hx Diphtheria, Pertussis, Tetanus Vaccination: Yes Review of Systems - Review of Systems -: Yes ROS unobtainable due to patient's medical condition - confused, gives minimal one word answers Physical Exam - Vital signs Vitals: Temp 99.2 F 04/23/19 20:14 Interpretation: Tachycardic - General General appearance: Lethargic In distress: None - HEENT Head: Other - I can feel patient's FLOWER GROWER shunt on the right parietal-occipital area. No abnormalities of this area are appreciated. Pupils: PERRL - 3mm Nasal: Normal Mouth/Lips: Other - Patient's bottom lip is swollen with some crusting. It appears patient may have bit her lip. Tongue is unremarkable. Posterior pharynx is unremarkable Mucous membranes: Dry Pharynx: Normal Neck: Normal - Respiratory Respiratory status: No respiratory distress Breath sounds: Normal Chest palpation: Normal - Cardiovascular Rhythm: Tachycardia Heart sounds: Normal auscultation - Abdominal Inspection: Normal Distension: No distension Organomegaly: No organomegaly - Back Back: Normal, Nontender - Extremities General upper extremity: Normal inspection, Normal color. No: Edema General lower extremity: Normal inspection, Normal color. No: Edema - Neurological Cognition: Confused Dhiraj Coma Scale Eye Opening: To Pain Cadott Coma Scale Verbal: Confused Cadott Coma Scale Motor: Obeys Commands Cadott Coma Scale Total: 12 - Psychological Associated symptoms: Confused, Depressed - Skin Skin Temperature: Warm Skin Moisture: Dry Course - Re-evaluation Re-evalutation: 04/23/19 21:[address] shows some mild hydrocephalus but no drastic hydrocephalus. No evidence of bleeding. Patient does not have a fever. She has remained tachycardic and does appear dry. Patient has a mild urinary tract infection which I will treat with Rocephin. She has an unremarkable chest x-ray. Patient continues to be somnolent and will only wake up and give 1 word answers. She is protecting her airway however. With her history of a FLOWER GROWER shunt and brain tumor I think it is best for patient if she is treated at [facility] where she had her original surgery. They have accepted her. Patient at this time is stable. Vital signs are essentially unchanged. Neuro status is unchanged. - Vital Signs Vital signs: Temp Pulse Resp BP Pulse Ox 99.2 F 04/23/19 20:14 - Laboratory Result Diagrams: 04/23/19 19:05 04/23/19 19:05 Laboratory results interpreted by me: 04/23/19 04/23/19 04/23/19 19:05 19:05 19:05 WBC 10.8 H Hgb 15.6 H Lymph % (Auto) 10.1 L Absolute Neuts (auto) 8.7 H Seg Neutrophils % 80.4 H PT 21.7 H Potassium 3.2 L Chloride 108 H Carbon Dioxide 20 L Creatinine 0.47 L Direct Bilirubin 0.5 H Urine Ketones Urine Blood Urine Urobilinogen 04/23/19 20:02 WBC Hgb Lymph % (Auto) Absolute Neuts (auto) Seg Neutrophils % PT Potassium Chloride Carbon Dioxide Creatinine Direct Bilirubin Urine Ketones 80 H Urine Blood LARGE H Urine Urobilinogen 4.0 H - Diagnostic Test Radiology reviewed: Image reviewed, Reports reviewed Radiology results interpreted by me: 04/23/19 21:31 Chest X-Ray 04/23/19 19:16 IMPRESSION: NO ACUTE RADIOGRAPHIC FINDING IN THE CHEST. Head CT 04/23/19 19:18 IMPRESSION: No acute finding. There is mild hydronephrosis. A ventriculoperitoneal shunt is present. There appears to be some degree chronic microvascular ischemia. EVIDENCE OF ACUTE STROKE: NO. - EKG Interpretation by Me EKG shows normal: Sinus rhythm Rate: Tachycardia - 125 [place]/QRS: Left axis deviation Discharge - Discharge Clinical Impression: Dehydration, UTI (urinary tract infection) Altered mental status Qualifiers: Altered mental status type: somnolence Qualified Code(s): R40.0 - Somnolence Condition: Serious Disposition: [place] Referrals: SMITHA MICHELLE MD [Primary Care Provider] - Follow up as needed
[2019-04-23 23:51] VITALS: BP 140/87
--- NOTE | 2019-04-24 23:11 | EKG REPORT ---
SEVERITY:- ABNORMAL ECG - SINUS TACHYCARDIA LEFT ATRIAL ABNORMALITY LEFT AXIS DEVIATION BORDERLINE R WAVE PROGRESSION, ANTERIOR LEADS PROBABLE RVH : Confirmed by: Kristyn Espinoza 24-Apr-2019 23:10:09
== END 2019-04-23 23:51 | disposition short-term general hospital (02) ==
LOC: ER 19:04
DX: E86.0 Dehydration (principal); N39.0 Urinary tract infection, site not specified; R40.0 Somnolence; W19.XXXA Unspecified fall, initial encounter; Z87.891 Personal history of nicotine dependence
CPT/HCPCS: 93005; 36415; 87040; 87086; 80307 ×2; 83735; 85025; 85610; 80053; 81001; 84484; 82803; 83605; 71045; 70450; 93010; J7030; J0696

== ENCOUNTER 2019-05-06 08:57 | Emergency (ER) | payer MEDICARE, MEDICAID ==
[2019-05-06] MEDS ORDERED: NORMAL SALINE 1000 ML 1,000 ML IV ONE ×2 (09:39→11:10)
[2019-05-06] MEDS ORDERED: CEFTRIAXONE 1 GM/D5W RTU 1 GM/50 ML RTUPB IV ONE (09:40)
--- NOTE | 2019-05-06 09:44 | ER Document Report ---
ED General - General Chief Complaint: Altered Mental Status Stated Complaint: UNRESPONSIVE Time Seen by Provider: 05/06/19 09:27 Primary Care Provider: SMITHA MICHELLE MD [Primary Care Provider] - Follow up as needed Notes: HPI: 59-year-old female with past medical history including a brain mass with supposedly shunting that was performed at [facility]. Patient presented with some altered mental status earlier this month and also was diagnosed with urinary tract infection. She was sent to [facility] and supposedly was found to have a blocked shunt according to EMS. Supposedly the patient for the last 2 days has been unresponsive. Unknown at this point why the family did not bring the patient in earlier. Supposedly no fevers, vomiting, diarrhea, or cough. Looking at the urine culture results it appears that the patient's urine on April 23 grew aerococus urinae. ROS: See HPI Unable to review the full review of systems secondary to patient's condition. Reviewed vital signs and nursing note as charted by RN. PHYSICAL EXAM: CONSTITUTIONAL: Patient is sitting up in the bed at 30 degrees breathing on her own with stable vital signs despite tachycardia but is unresponsive HEAD: Normocephalic; atraumatic EYES: PERRL ENT: Normal nose; no rhinorrhea; moist mucous membranes; pharynx without lesions noted NECK: Supple; no cervical lymphadenopathy, no masses CARD: Tachycardic and regular; no murmurs; symmetric distal pulses RESP: Normal chest excursion without splinting or tachypnea; breath sounds clear and equal bilaterally; no wheezes, no rhonchi, no rales ABD/GI: Normal bowel sounds; non-distended; soft; no palpable organomegaly or masses BACK: The back appears normal EXT: Normal ROM in all joints; non-tender to palpation; no edema SKIN: Patient has a nonraised non-macular fine rash to the back that is blanching. It appears to cover the entire back region. No extremity, palm, sole, intraoral, or abdominal lesions present NEURO: Patient has no movement spontaneously of all 4 extremities except for some minimal ankle flexion and extension TRAVEL OUTSIDE OF THE [place] IN LAST 30 DAYS: No - Related Data Allergies/Adverse Reactions: No Known Allergies Allergy (Unverified 03/24/16 12:01) Past Medical History - Social History Smoking Status: Unknown if Ever Smoked Family History: Reviewed & Not Pertinent Renal/ Medical History: Denies: Hx Peritoneal Dialysis Past Surgical History: Reports: Hx Neurologic Surgery - dr. abi elliott. shunts AND TUMOR REMOVAL - Immunizations Hx Diphtheria, Pertussis, Tetanus Vaccination: Yes Review of Systems - Review of Systems -: Yes ROS unobtainable due to patient's medical condition Physical Exam - Vital signs Vitals: Temp Resp BP 98.1 F 14 115/77 05/06/19 09:34 05/06/19 09:34 05/06/19 09:34 Course - Re-evaluation Re-evalutation: 05/06/19 09:44 Given the above history and physical, with the patient's past medical condition, we will place the patient on the monitor, obtain labs, provide fluids, obtain another urine catheterization, provide fluids and antibiotics, obtain a stat CT scan of the head, and reassess. Patient has the bed up at 30 degrees. Patient's symptoms have supposedly been stable for 2 days according to EMS report. We are attempting to contact family. Concern for possible airway s afety and I will discuss urgent intubation. Peoples are currently 2 mm and reactive bilaterally. 05/06/19 09:45 EKG shows a heart of 113, sinus tachycardia, left anterior fascicular block, no obvious ST elevation or depression. Prolonged QT interval 05/06/19 10:17 No change in mental exam. Labs as recorded. CT imaging has been performed showing no obvious blood. Awaiting for formal interpretation. I have called both phone numbers listed in the patient's demographics with one phone being disconnected and the other one going to an answering machine. We will provide airway protection with intubation at this time. I will most likely attempt to transfer the patient to [facility]. No change in pupillary exam. 05/06/19 10:43 Patient was electively intubated. Imaging of the chest and CT head as recorded. Full shunt series is pending. I have called the [facility] transfer center to help expedite transfer. 05/06/19 11:10 Patient had an episode of some desaturations after intubation. X-ray was performed showing the tube had been advanced into the right mainstem. We pulled back on the tube with a repeat x-ray with good oxygen saturation. - Vital Signs Vital signs: Temp Pulse Resp BP Pulse Ox 98.5 F 17 125/85 100 05/06/19 13:10 05/06/19 12:11 05/06/19 12:11 05/06/19 12:34 - Laboratory Result Diagrams: 05/06/19 09:15 05/06/19 09:15 Laboratory results interpreted by me: 05/06/19 05/06/19 05/06/19 09:15 09:15 09:48 WBC 11.9 H RBC 5.52 H Hgb 16.9 H Hct 50.3 H Lymph % (Auto) 6.4 L Absolute Neuts (auto) 10.4 H Seg Neutrophils % 87.4 H Glucose 116 H Calcium 10.6 H Urine Protein 30 H Urine Ketones 300 H Urine Blood LARGE H Urine Urobilinogen 2.0 H Procedures - Intubation Orotracheal Airway evaluation: Normal anatomy Mallampati Classification: Class 2 Medications: Etomidate, Other - Rocuronium Intubation method: Orotracheal Blade type: Katrin Blade size: 4 Equipment used: Glidescope ETT size: 7.5 ETT secured at: Teeth ETT secured at (cm): 23 Breath Sounds after Intubation: Equal End tidal CO2 confirmed: Yes Ventilator settings: AC Post Intubation Xray: Yes Intubation Complications: No complications Critical Care Note - Critical Care Note Total time excluding time spent on procedures (mins): 45 Discharge - Discharge Clinical Impression: Ventriculo-peritoneal shunt status Altered mental status, unspecified Qualifiers: Altered mental status type: unspecified Qualified Code(s): R41.82 - Altered mental status, unspecified Condition: Serious Disposition: [place] Referrals: SMITHA MICHELLE MD [Primary Care Provider] - Follow up as needed
[2019-05-06 09:49] LABS: ABSOLUTE EOSINOPHILS # (AUTO) 0.1 10^3/uL (0.0-0.6); ABSOLUTE LYMPHOCYTES (AUTO) 0.8 10^3/uL (0.5-4.7); ABSOLUTE MONOCYTES (AUTO) 0.6 10^3/uL (0.1-1.4); ABSOLUTE NEUT (AUTO) 10.4 10^3/uL (1.7-8.2); BASOPHILS % (AUTO) 0.4 % (0-2); EOSINOPHILS % (AUTO) 0.5 % (0-6); HEMATOCRIT 50.3 % (36.0-47.0); HEMOGLOBIN 16.9 g/dL (12.0-15.5); LYMPHOCYTES % (AUTO) 6.4 % (13-45); MEAN CORPUSCULAR HEMOGLOBIN 30.7 pg (27.0-33.4); MEAN CORPUSCULAR HGB CONC 33.7 g/dL (32.0-36.0); MEAN CORPUSCULAR VOLUME 91 fl (80-97); MONOCYTES % (AUTO) 5.3 % (3-13); PLATELET COUNT 314 10^3/uL (150-450); RED BLOOD COUNT 5.52 10^6/uL (3.72-5.28); RED CELL DISTRIBUTION WIDTH 13.3 % (11.5-14.0); SEGMENTED NEUTROPHILS % (AUTO) 87.4 % (42-78); TOTAL CELLS COUNTED % (AUTO) 100 %; WHITE BLOOD COUNT 11.9 10^3/uL (4.0-10.5)
[2019-05-06 09:56] LABS: ANION GAP 17 (5-19); BLOOD UREA NITROGEN 13 mg/dL (7-20); CALCIUM 10.6 mg/dL (8.4-10.2); CARBON DIOXIDE 23 mmol/L (22-30); CHLORIDE 103 mmol/L (98-107); GLUCOSE 116 mg/dL (75-110); POTASSIUM 4.3 mmol/L (3.6-5.0)
--- NOTE | 2019-05-06 10:21 | EKG REPORT ---
SEVERITY:- ABNORMAL ECG - SINUS TACHYCARDIA LEFT ANTERIOR FASCICULAR BLOCK NONSPECIFIC T ABNORMALITIES, LATERAL LEADS : Confirmed by: Bethany Burns MD 06-May-2019 10:20:31
[2019-05-06] MEDS ORDERED: ETOMIDATE INJ/PF 20 MG/10 ML SDV IV ONE ×2 (10:23→11:29)
[2019-05-06] MEDS ORDERED: PROPOFOL 1,000 MG/100 ML INFUS..BTL IV ONE (10:24)
--- NOTE | 2019-05-06 10:28 | RADIOLOGY REPORT (SQ) ---
EXAM DESCRIPTION: CT HEAD WITHOUT COMPLETED DATE/TIME: 05/06/2019 10:14 am REASON FOR STUDY: 1: ams COMPARISON: 04/23/2019 TECHNIQUE: Axial images acquired through the brain without intravenous contrast. Images reviewed wi th bone, brain and subdural windows. Additional sagittal and coronal reconstructions were generated. Images stored on PACS. All CT scanners at this facility use dose modulation, iterative reconstruction, and/or weight based d osing when appropriate to reduce radiation dose to as low as reasonably achievable (ALARA). [facility]: Dose Right [facility]: CareDose [facility]: Dose Right [facility]: Teradose 4D [facility]: Smart Technologies RADIATION DOSE: CT Rad equipment meets quality standard of care and radiation dose reduction techniq ues were employed. CTDIvol: 53.2 mGy. DLP: 937 mGy-cm. mGy. LIMITATIONS: None. FINDINGS: VENTRICLES: Stable shunted ventriculomegaly. Catheter projects to the top of the 3rd vent ricle. CEREBRUM: Deep periventricular low density thickly in the right frontal and bilateral parietal lobes. Stable appearance. No developing hemorrhage or mass. CEREBELLUM: No masses. No hemorrhage. No alteration of density. No evidence for acute infarction. EXTRAAXIAL SPACES: No hemorrhage or mass or fluid. ORBITS AND GLOBE: No intra- or extraconal masses. Normal contour of globe without masses. CALVARIUM: Chronic postoperative changes. Right posterior craniotomy. No skull fracture. PARANASAL SINUSES: No fluid or mucosal thickening. SOFT TISSUES: No mass or hematoma. OTHER: No other significant finding. IMPRESSION: 1. Stable appearance of the brain. Includes shunted hydrocephalus and extensive deep white matter di sease, similar to prior. No acute intracranial abnormality detected. EVIDENCE OF ACUTE STROKE: NO. COMMENT: Quality ID # [id number]: Final reports with documentation of one or more dose reduction techniques (e.g., Automated exposure control, adjustment of the mA and/or kV according to patient size, use of iterative reconstruction technique) TECHNICAL DOCUMENTATION: JOB ID: [id number]- All Rights Reserved Reading location - IP/workstation name: [email or web address]
--- NOTE | 2019-05-06 10:33 | RADIOLOGY REPORT (SQ) ---
EXAM DESCRIPTION: CHEST SINGLE VIEW COMPLETED DATE/TIME: 05/06/2019 10:12 am REASON FOR STUDY: 1: ams COMPARISON: 04/23 FINDINGS: Single-view chest AP portable upright. Chronic pleural thickening right upper lung field. Lungs otherwise clear. Shunt catheter along the right chest. Stable cardiomediastinal silhouette, normal. TECHNICAL DOCUMENTATION: JOB ID: [id number] Reading location - IP/workstation name: [email or web address]
[2019-05-06 10:42] LABS: APPEARANCE,URINE SLIGHTLY-CLOUDY; BILIRUBIN,URINE NEGATIVE (NEGATIVE); COLOR,URINE YELLOW; GLUCOSE, URINE NEGATIVE (NEGATIVE); KETONES,URINE 300 mg/dL (NEGATIVE); LEUKOCYTE ESTERASE,URINE NEGATIVE (NEGATIVE); NITRITE,URINE NEGATIVE (NEGATIVE); PROTEIN,URINE 30 mg/dL (NEGATIVE); URINE SPECIFIC GRAVITY 1.021
--- NOTE | 2019-05-06 11:27 | RADIOLOGY REPORT (SQ) ---
EXAM DESCRIPTION: SHUNTOGRAM SERIES COMPLETED DATE/TIME: 05/06/2019 11:18 am REASON FOR STUDY: 1; shunt with ams COMPARISON: 02/27/2018 FINDINGS: 2 images of the body to include AP skull, neck and chest and AP abdomen. Limited by patient cooperation and stability issues. As assessed, ventricular shunt catheter on the right is intact. There are several areas of less than optimal visualization. TECHNICAL DOCUMENTATION: JOB ID: [id number] Reading location - IP/workstation name: [email or web address]
[2019-05-06] MEDS ORDERED: ROCURONIUM BROMIDE INJ 50 MG/5 ML VIAL IV ONE ×2 (11:28→12:25)
[2019-05-06] MEDS ORDERED: PROPOFOL 1,000 MG/100 ML INFUS..BTL IV PRN (11:29)
--- NOTE | 2019-05-06 11:35 | RADIOLOGY REPORT (SQ) ---
EXAM DESCRIPTION: CHEST SINGLE VIEW COMPLETED DATE/TIME: 05/06/2019 11:18 am REASON FOR STUDY: 1; s/p intubation COMPARISON: 05/06/2019 earlier FINDINGS: 2 sequential single-view chest images are obtained and submitted as part of 1 examination: The 1st image labeled "1 of 2" shows right mainstem endotracheal intubation with extensive collapse and opacity throughout the left lung and shift of mediastinal structures to the left. The 2nd image labeled "2 of 2" shows endotracheal tube having been pulled back and in appropriate po sition. Much better aeration of the left lung noted with some persistent left basilar volume loss/ c onsolidation. Presumed nasogastric tube also down with tip off the inferior aspect of the radiograph. TECHNICAL DOCUMENTATION: JOB ID: [id number] Reading location - IP/workstation name: [email or web address]
[2019-05-06 12:20] VITALS: BP 125/85
== END 2019-05-06 13:03 | disposition short-term general hospital (02) ==
LOC: ER 08:57
PROC: 0BH17EZ Insertion of Endotracheal Airway into Trachea, Via Natural or Artificial Opening (ICD-10-PCS; principal; 2019-05-06)
DX: R41.82 Altered mental status, unspecified (principal); R00.0 Tachycardia, unspecified; Z98.2 Presence of cerebrospinal fluid drainage device
CPT/HCPCS: 93005; 99291; 96360; 36415; 87040; 87086; 82962; 85025; 87088; 80048; 81001; 84484; 75809; 71045; 70450; 94660; 93010; 31500; J3490; J2704; J7030; J0696; 94002; A4315

== ENCOUNTER 2019-06-09 14:33 | Emergency (ER) | payer MEDICARE, MEDICAID ==
[2019-06-09] MEDS ORDERED: ACETAMINOPHEN 325 MG TABLET PO ONE (15:00)
--- NOTE | 2019-06-09 15:00 | ER Document Report ---
ED Medical Screen (RME) - General Stated Complaint: FALL Time Seen by Provider: 06/09/19 14:57 Primary Care Provider: SMITHA MICHELLE MD [Primary Care Provider] - Follow up as needed Mode of Arrival: Medic Information source: Patient Notes: 59-year-old female presented to ED for complaint of pain to the right right ankle. She states she tripped and fell early this morning. She has pain swelling and bruising to the lateral aspect of the right ankle. She is alert oriented respirations regular and unlabored. She did come by EMS. I have greeted and performed a rapid initial assessment of this patient. A comprehensive ED assessment and evaluation of the patient, analysis of test results and completion of medical decision making process will be conducted by an additional ED providers. TRAVEL OUTSIDE OF THE [place] IN LAST 30 DAYS: No - Related Data Allergies/Adverse Reactions: No Known Allergies Allergy (Unverified 03/24/16 12:01) Past Medical History Renal/ Medical History: Denies: Hx Peritoneal Dialysis Past Surgical History: Reports: Hx Neurologic Surgery - dr. abi singh. shunts AND TUMOR REMOVAL - Immunizations Hx Diphtheria, Pertussis, Tetanus Vaccination: Yes Doctor's Discharge - Discharge Referrals: SMITHA MICHELLE MD [Primary Care Provider] - Follow up as needed
--- NOTE | 2019-06-09 15:42 | RADIOLOGY REPORT (SQ) ---
EXAM DESCRIPTION: ANKLE RIGHT COMPLETE COMPLETED DATE/TIME: 06/09/2019 3:30 pm REASON FOR STUDY: Pain swelling bruising right foot and ankle COMPARISON: None. NUMBER OF VIEWS: Three views. TECHNIQUE: AP, lateral, and oblique radiographic images acquired of the right ankle. LIMITATIONS: None. FINDINGS: MINERALIZATION: Normal. BONES: Nondisplaced fracture of the distal fibula. No worrisome bone lesions. JOINTS: No effusions. SOFT TISSUES: Lateral soft tissue swelling. No foreign body. OTHER: No other significant finding. IMPRESSION: NONDISPLACED FRACTURE OF THE DISTAL FIBULA. TECHNICAL DOCUMENTATION: JOB ID: [id number] [employer]- All Rights Reserved Reading location - IP/workstation name: [email or web address]
--- NOTE | 2019-06-09 15:42 | RADIOLOGY REPORT (SQ) ---
EXAM DESCRIPTION: FOOT RIGHT COMPLETE COMPLETED DATE/TIME: 06/09/2019 3:30 pm REASON FOR STUDY: Pain swelling bruising right foot and ankle COMPARISON: None. NUMBER OF VIEWS: Three views. TECHNIQUE: AP, lateral and oblique radiographic images acquired of the right foot. LIMITATIONS: None. FINDINGS: MINERALIZATION: Normal. BONES: No acute fracture or dislocation. No worrisome bone lesions. JOINTS: No effusions. SOFT TISSUES: No soft tissue swelling. No foreign body. OTHER: No other significant finding. IMPRESSION: NEGATIVE STUDY OF THE RIGHT FOOT. NO RADIOGRAPHIC EVIDENCE OF ACUTE INJURY. TECHNICAL DOCUMENTATION: JOB ID: [id number] [employer]- All Rights Reserved Reading location - IP/workstation name: [email or web address]
--- NOTE | 2019-06-09 16:43 | ER Document Report ---
HPI - HPI Time Seen by Provider: 06/09/19 14:57 Pain Level: 3 Notes: Patient is a 59-year-old female no significant past medical history presents complaining of right lateral ankle pain since post injury prior to arrival. Patient states that her ankle twisted at the skilled nursing. She did not injure any other part of her body or hit her head. No loss of conscious. Patient states that she has had pain and swelling to that side since the injury. She is otherwise able to eat and drink without difficulty. She is urinating normally. Denies drug allergies. No other concerns or complaints. She did receive Tylenol at triage. Denies any headache, fever, head injury, neck pain, changes in vision/speech/mentation/hearing, URI, sore throat, chest pain, palpitations, syncope, cough, shortness of breath, wheeze, dyspnea, abdominal pain, nausea/vomiting/diarrhea, urinary retention, dysuria, hematuria, loss of control of bowel or bladder, numbness/tingling, saddle anesthesia, muscle paralysis, or rash. - ROS Systems Reviewed and Negative: Yes All other systems reviewed and negative - REPRODUCTIVE Reproductive: DENIES: : - DERM Skin Color: Normal Past Medical History - General Information source: Patient - Social History Smoking Status: Never Smoker Chew tobacco use (# tins/day): No Frequency of alcohol use: None Drug Abuse: None Family History: Reviewed & Not Pertinent Patient has suicidal ideation: No Patient has homicidal ideation: No Renal/ Medical History: Denies: Hx Peritoneal Dialysis Past Surgical History: Reports: Hx Neurologic Surgery - dr. abi singh. shunts AND TUMOR REMOVAL - Immunizations Hx Diphtheria, Pertussis, Tetanus Vaccination: Yes Vertical Provider Document - CONSTITUTIONAL Agree With Documented VS: Yes Notes: PHYSICAL EXAMINATION: GENERAL: Well-appearing, well-nourished and in no acute distress. Head: atraumatic Neck: no midline tenderness. FROM. LUNGS: Breath sounds clear to auscultation bilaterally and equal. No wheezes rales or rhonchi. HEART: Regular rate and rhythm without murmurs, rubs, gallops. Musculoskeletal: Rt foot/ankle: + lat. malleolus swelling/mild ecchymosis with associated tenderness to distal fibula. LROM to passive/active. Strength 5+/5. N/V intact distal. No bony tenderness of the foot. Achilles intact. Lis Franc maneuver neg. Anterior drawer neg. Extremities: No cyanosis, clubbing, or edema b/l. Peripheral pulses 2+. Capillary refill less than 3 seconds. NEUROLOGICAL: Normal speech. Normal sensory, motor exams PSYCH: Normal mood, normal affect. SKIN: Warm, Dry, normal turgor, no rashes or lesions noted. - INFECTION CONTROL TRAVEL OUTSIDE OF THE [place] IN LAST 30 DAYS: No Course - Re-evaluation Re-evalutation: 06/09/19 16:42 Patient is an afebrile, well-hydrated, 59-year-old female who presents to the ED with a fracture to the distal rt fibula, nondisplaced. Vitals are acceptable without any significant tachycardia, tachypnea, or hypoxia. PE is otherwise unremarkable for any neurovascular compromise, obvious tendon/ligament rupture, open fracture, septic joint. See XR result. Splint applied today and crutches provided. Tylenol given PO. Patient is nontoxic-appearing. No other labs or imaging warranted at this time based on H&P. Conservative measures otherwise for symptoms. Recheck with your PCM in 3-5 days. Call orthopedics to schedule an appointment for further evaluation and management. Return to the ED with any worsening/concerning symptoms otherwise as reviewed in discharge. Patient is in agreement. - Vital Signs Vital signs: Temp Pulse Resp BP Pulse Ox 98.7 F 91 118/70 100 06/09/19 15:12 06/09/19 15:12 06/09/19 15:12 06/09/19 15:12 Procedures - Immobilization Right Ankle Pre-Proc Neuro Vasc Exam: Normal Immobilizer type: Short Leg Posterior Performed by: PCT Post-Proc Neuro Vasc Exam: Normal, Unchanged from pre-exam Discharge - Discharge Clinical Impression: Closed fracture of right distal fibula Qualifiers: Encounter type: initial encounter Fracture morphology: unspecified fracture morphology Qualified Code(s): S82.831A - Other fracture of upper and lower end of right fibula, initial encounter for closed fracture Condition: Stable Disposition: HOME, SELF-CARE Additional Instructions: Rest, Ice, Compression, Elevation Use crutches/splint as directed Tylenol/ibuprofen as needed F/u with your PCP in 3-5 days for a recheck Call orthopedics tomorrow to schedule an appointment for further evaluation and management Return to the ED with any worsening symptoms and/or development of fever, head ache, chest pain, palpitations, syncope, shortness of breath, trouble breathing, abdominal pain, n/v/d, muscle weakness/paralysis, numbness/tingling, swelling, redness, or other worsening symptoms that are concerning to you. Referrals: SMITHA MICHELLE MD [Primary Care Provider] - Follow up as needed [facility] [Provider Group] - Follow up in 3-5 days
[2019-06-09] MEDS ORDERED: HYDROCODONE/ACETAMINOPHEN 5-325 MG (6 TAB/ER DISP) PO PRN (16:44)
[2019-06-09 22:07] VITALS: BP 103/73
== END 2019-06-09 22:30 | disposition home or self-care (01) ==
LOC: ER 14:33
PROC: 2W3QX1Z Immobilization of Right Lower Leg using Splint (ICD-10-PCS; principal; 2019-06-09)
DX: S82.831A Other fracture of upper and lower end of right fibula, initial encounter for closed fracture (principal); M25.571 Pain in right ankle and joints of right foot; X50.1XXA Overexertion from prolonged static or awkward postures, initial encounter
CPT/HCPCS: 73610; 73630; 29515; A9270; 99284

== ENCOUNTER → 2019-08-09 | Outpatient (CLI) | payer MEDICAID, MEDICARE ==
--- NOTE | 2019-08-09 18:17 | WOMENS IMAGING REPORT ---
EXAM DESCRIPTION: 3D SCREENING MAMMO BILAT COMPLETED DATE/TIME: 08/09/2019 1:30 pm REASON FOR STUDY: Z12.31 ENCOUNTER FOR SCREENING MAMMOGRAM FOR MALIGNANT NEOPLASM OF BREAST Z12.31 ENCNTR SCREEN MAMMOGRAM FOR MALIGNANT NEOPLASM OF RENU COMPARISON: Multiple since 2008 EXAM PARAMETERS: Standard craniocaudal and mediolateral oblique views of each breast recorded using digital acquisition and breast tomosynthesis. Read with the assistance of CAD. .COUNT INCLUDES THE [facility] - WSO2 Compound Finisher Version 9.2 LIMITATIONS: None. FINDINGS: Findings present which are benign by mammographic criteria. No suspicious masses, calcific ations or architectural distortion. Pertinent benign findings: Benign bilateral breasts calcifications. Radiopaque ventriculoperitoneal shunt tubing over the medial right breast Benign mammographic findings may include one or more of the following: Smooth masses, popcorn/rim/coa rse calcifications, asymmetries, post-procedure changes, and lesions with long-standing stability. IMPRESSION: BENIGN MAMMOGRAPHIC FINDINGS. BIRADS 2 BREAST DENSITY: d. The breasts are extremely dense, which lowers the sensitivity of mammography. BIRAD: ASSESSMENT: 2 BENIGN FINDING(S) RECOMMENDATION: ROUTINE SCREENING Please continue yearly bilateral screening mammography/tomosynthesis in July 2020. COMMENT: The patient has been notified of the results by letter per [place] requirements. Additional no tification policies are in place for contacting patient with suspicious or incomplete findings. Quality ID #[id number]: The [employer] recommends an annual screening mammogram for women aged 40 years or over. This facility utilizes a reminder system to ensure that all patients receive reminder letters, and/or direct phone calls for appointments. This includes reminders for routine scr eening mammograms, diagnostic mammograms, or other Breast Imaging Interventions when appropriate. Th is patient will be placed in the appropriate reminder system. TECHNICAL DOCUMENTATION: FINDING NUMBER: (1) ASSESSMENT: (1) JOB ID: [id number] [employer]- All Rights Reserved Reading location - IP/workstation name: [email or web address]
== END ==
LOC: WI 12:23
PROVIDERS: ATTEND Internal Medicine Geriatric Medicine
DX: Z12.31 Encounter for screening mammogram for malignant neoplasm of breast (principal)
CPT/HCPCS: 77063; 77067